=== PATIENT | female | born 1995 | race Caucasian/White ===

== ENCOUNTER 2021-01-18 12:20 | Outpatient (CLI) | payer SELFPAY ==
--- NOTE | 2021-01-18 15:28 | WPDPFTINT ---
PFT Procedure Performed PFT Procedure Performed Plethysmography (Lung Vol) Diffusing Cap (DLCO) Flow Vol Loop Spirometry w/o Bronchodil PFT Interpretation This is a pulmonary function test with spirometry, plethysmography and diffusing capacity. The test was performed and results interpreted in accordance with the 2019 and 2005 ATS/ERS Task Force guidelines respectively using the Global Lung Function Initiative-2012 reference equations. Patient demonstrated good effort and cooperation. Reproducibility criteria were met. The quality of the spirometry maneuver was Grade A. Findings: Spirometry:The contour the inspiratory and expiratory flow tracing are normal. The FVC is 3.29 L, 78% predicted. The FEV1 is 2.85 L, 78% predicted. The FEV1: FVC ratio was 87%. Plethysmography: The total lung capacity is 4.71 L, 86% predicted. The functional residual capacity is 2.77 L, 92% predicted. The residual volume is 1.42 L, 102% predicted. Diffusing capacity: The absolute diffusion capacity is 20.7, 77% predicted. The diffusing capacity corrected for alveolar volume is 5.03, 103% predicted. Impression: The spirometry is normal without evidence of an obstructive abnormality. The lung volumes are normal. The diffusing capacity is normal. There are no prior studies for comparison
== END 2021-01-18 12:21 | disposition home or self-care (01) ==
LOC: ANHPFT 12:22
PROVIDERS: Visit Provider Nurse Practitioner Adult Health
DX: J45.909 Unspecified asthma, uncomplicated (principal)
CPT/HCPCS: 94375; 94726; 94729